=== PATIENT | female | born 1955 | race Caucasian/White ===

== ENCOUNTER → 2020-03-19 | Outpatient (CLI) | payer OTHER | LOC: RAD 17:30 | DX: M17.11 Unilateral primary osteoarthritis, right knee (principal); S49.92XA Unspecified injury of left shoulder and upper arm, initial encounter; M25.551 Pain in right hip; V87.7XXA Person injured in collision between other specified motor vehicles (traffic), initial encounter ==

== ENCOUNTER 2020-06-26 11:30 | Outpatient (RCR) | payer OTHER | END 2020-07-14 | disposition home or self-care (01) | LOC: PT | DX: M25.512 Pain in left shoulder (principal) ==

== ENCOUNTER 2020-07-16 10:57 | Outpatient (RCR) | payer OTHER, MEDICARE | END 2020-07-30 16:30 | disposition home or self-care (01) | LOC: PT 10:57 | DX: M25.512 Pain in left shoulder (principal) ==

== ENCOUNTER → 2020-08-29 | Outpatient (CLI) | payer MEDICARE, MEDICAID ==
[2020-08-29 12:16] LABS: EOS # 0.2 (0.04-0.40); EOS % 2.5 % (1.0-5.0); HEMATOCRIT 40.8 % (37.0-47.0); HEMOGLOBIN 13.6 g/dL (12.5-16.0); LYMPH# 2.3 (1.50-4.00); MEAN CELL VOLUME 90 fl (78-100); MEAN CORPUSCULAR HEMOGLOBIN 30 pg (27-31); MEAN CORPUSCULAR HGB CONC 33 g/dL (33-37); MEAN PLATELET VOLUME 10.7 fl (7.4-10.4); MONO # 0.4 (0.20-0.80); NEU # 3.4 (1.40-6.50); PLATELET COUNT 290 K/mm3 (130-400); RED BLOOD COUNT 4.56 M/mm3 (4.10-5.30); WHITE BLOOD COUNT 6.3 K/mm3 (4.8-10.8)
[2020-08-29 12:27] LABS: ALBUMIN 4.3 g/dL (3.4-4.8); POTASSIUM 3.9 mmol/L (3.5-5.1)
[2020-08-29 12:28] LABS: CALCIUM 9.1 mg/dL (8.3-10.5)
[2020-08-29 12:30] LABS: TOTAL PROTEIN 7.7 g/dL (6.2-8.1)
[2020-08-29 12:31] LABS: TOTAL BILIRUBIN 0.6 mg/dL (0.2-1.2)
== END ==
LOC: LAB 11:57
PROVIDERS: Physician Assistant
DX: Z00.00 Encounter for general adult medical examination without abnormal findings (principal); Z13.29 Encounter for screening for other suspected endocrine disorder; E78.5 Hyperlipidemia, unspecified; R73.9 Hyperglycemia, unspecified

== ENCOUNTER → 2020-09-02 | Outpatient (CLI) | payer MEDICARE, MEDICAID | LOC: MAMMO 13:45 | DX: Z12.31 Encounter for screening mammogram for malignant neoplasm of breast (principal); Z00.00 Encounter for general adult medical examination without abnormal findings ==

== ENCOUNTER → 2020-09-04 | Outpatient (CLI) | payer MEDICARE, MEDICAID | LOC: RAD 09:00 → MAMMO 09:15 | DX: Z78.0 Asymptomatic menopausal state (principal); Z13.820 Encounter for screening for osteoporosis; Z00.00 Encounter for general adult medical examination without abnormal findings ==

== ENCOUNTER → 2021-09-16 | Outpatient (CLI) | payer MEDICARE, MEDICAID | LOC: MAMMO 15:04 | DX: Z12.31 Encounter for screening mammogram for malignant neoplasm of breast (principal) ==

== ENCOUNTER → 2021-10-01 | Outpatient (CLI) | payer MEDICARE, MEDICAID | LOC: RAD 12:59 | DX: N60.02 Solitary cyst of left breast (principal) ==

== ENCOUNTER 2021-10-12 12:56 | Outpatient (RCR) | payer MEDICARE, MEDICAID | END 2021-11-07 | disposition still patient (30) | LOC: PT | DX: M75.122 Complete rotator cuff tear or rupture of left shoulder, not specified as traumatic (principal) ==

== ENCOUNTER → 2021-10-14 | Outpatient (CLI) | payer MEDICARE, MEDICAID ==
[2021-10-14 16:04] LABS: BASO # 0.04 K/mm3 (0.02-0.10); EOS # 0.21 K/mm3 (0.04-0.40); EOS % 2.3 % (1.0-5.0); HEMATOCRIT 40.2 % (37.0-47.0); HEMOGLOBIN 13.5 g/dL (12.5-16.0); LYMPH# 3.29 K/mm3 (1.50-4.00); MEAN CELL VOLUME 89 fl (78-100); MEAN CORPUSCULAR HEMOGLOBIN 30 pg (27-31); MEAN CORPUSCULAR HGB CONC 34 g/dL (33-37); MEAN PLATELET VOLUME 10.7 fl (7.4-10.4); NEU # 4.95 K/mm3 (1.40-6.50); PLATELET COUNT 295 K/mm3 (130-400); RED CELL DISTRIBUTION WIDTH 14.2 % (11.5-14.5); WHITE BLOOD COUNT 9.1 K/mm3 (4.8-10.8)
[2021-10-14 16:09] LABS: ALBUMIN 4.1 g/dL (3.4-4.8)
[2021-10-14 16:10] LABS: CALCIUM 9.4 mg/dL (8.3-10.5)
[2021-10-14 16:11] LABS: TOTAL PROTEIN 7.5 g/dL (6.2-8.1)
[2021-10-14 16:13] LABS: TOTAL BILIRUBIN 0.4 mg/dL (0.2-1.2)
== END ==
LOC: LAB 15:33
PROVIDERS: Physician Assistant
DX: Z13.29 Encounter for screening for other suspected endocrine disorder (principal); Z13.1 Encounter for screening for diabetes mellitus; E78.5 Hyperlipidemia, unspecified; K90.9 Intestinal malabsorption, unspecified; K21.9 Gastro-esophageal reflux disease without esophagitis; I10 Essential (primary) hypertension; R42 Dizziness and giddiness

== ENCOUNTER 2021-11-10 12:58 | Outpatient (RCR) | payer MEDICARE, MEDICAID | END 2021-12-08 | disposition home or self-care (01) | LOC: PT | DX: M75.122 Complete rotator cuff tear or rupture of left shoulder, not specified as traumatic (principal); Z98.890 Other specified postprocedural states ==

== ENCOUNTER 2021-12-11 13:30 | Outpatient (RCR) | payer MEDICARE, MEDICAID | END 2022-01-07 | disposition still patient (30) | LOC: PT | DX: M75.122 Complete rotator cuff tear or rupture of left shoulder, not specified as traumatic (principal); Z98.890 Other specified postprocedural states ==

== ENCOUNTER 2022-01-08 13:00 | Outpatient (RCR) | payer MEDICARE, MEDICAID | END 2022-02-07 | disposition home or self-care (01) | LOC: PT | DX: M75.122 Complete rotator cuff tear or rupture of left shoulder, not specified as traumatic (principal); Z98.890 Other specified postprocedural states ==

== ENCOUNTER 2022-02-09 07:48 | Outpatient (RCR) | payer MEDICARE, MEDICAID | END 2022-03-10 | disposition home or self-care (01) | LOC: PT | DX: M75.122 Complete rotator cuff tear or rupture of left shoulder, not specified as traumatic (principal) ==

== ENCOUNTER → 2022-08-24 | Outpatient (CLI) | payer MEDICARE, MEDICAID ==
[2022-08-24 10:48] LABS: BASO # 0.02 K/mm3 (0.02-0.10); EOS # 0.24 K/mm3 (0.04-0.40); EOS % 3.6 % (1.0-5.0); HEMATOCRIT 37.8 % (37.0-47.0); HEMOGLOBIN 12.5 g/dL (12.5-16.0); LYMPH# 2.89 K/mm3 (1.50-4.00); MEAN CELL VOLUME 91 fl (78-100); MEAN CORPUSCULAR HEMOGLOBIN 30 pg (27-31); MEAN CORPUSCULAR HGB CONC 33 g/dL (33-37); MEAN PLATELET VOLUME 10.6 fl (7.4-10.4); MONO # 0.42 K/mm3 (0.20-0.80); NEU # 3.18 K/mm3 (1.40-6.50); PLATELET COUNT 272 K/mm3 (130-400); RED BLOOD COUNT 4.16 M/mm3 (4.10-5.30); RED CELL DISTRIBUTION WIDTH 13.8 % (11.5-14.5); WHITE BLOOD COUNT 6.8 K/mm3 (4.8-10.8)
[2022-08-24 10:59] LABS: ALBUMIN 4.2 g/dL (3.4-4.8); POTASSIUM 3.8 mmol/L (3.5-5.1)
[2022-08-24 11:02] LABS: TOTAL PROTEIN 7.4 g/dL (6.2-8.1)
[2022-08-24 11:04] LABS: TOTAL BILIRUBIN 0.5 mg/dL (0.2-1.2)
== END ==
LOC: LAB 10:23
PROVIDERS: Physician Assistant
DX: Z00.00 Encounter for general adult medical examination without abnormal findings (principal); Z13.29 Encounter for screening for other suspected endocrine disorder; Z13.1 Encounter for screening for diabetes mellitus; M25.512 Pain in left shoulder; N95.0 Postmenopausal bleeding; M79.10 Myalgia, unspecified site; E78.5 Hyperlipidemia, unspecified; K21.9 Gastro-esophageal reflux disease without esophagitis; N81.10 Cystocele, unspecified; F32.9 Major depressive disorder, single episode, unspecified; L20.9 Atopic dermatitis, unspecified; F41.9 Anxiety disorder, unspecified; K90.9 Intestinal malabsorption, unspecified

== ENCOUNTER → 2022-09-22 | Outpatient (CLI) | payer MEDICARE, MEDICAID | LOC: MAMMO 10:00 | DX: Z12.31 Encounter for screening mammogram for malignant neoplasm of breast (principal) ==

== ENCOUNTER → 2023-09-02 | Outpatient (CLI) | payer MEDICARE, MEDICAID ==
[2023-09-02 09:25] LABS: BASO # 0.02 K/mm3 (0.02-0.10); EOS # 0.26 K/mm3 (0.04-0.40); EOS % 3.7 % (1.0-5.0); HEMATOCRIT 37.6 % (37.0-47.0); HEMOGLOBIN 12.3 g/dL (12.5-16.0); LYMPH# 2.77 K/mm3 (1.50-4.00); MEAN CELL VOLUME 91 fl (78-100); MEAN CORPUSCULAR HEMOGLOBIN 30 pg (27-31); MEAN CORPUSCULAR HGB CONC 33 g/dL (33-37); MEAN PLATELET VOLUME 10.9 fl (7.4-10.4); MONO # 0.42 K/mm3 (0.20-0.80); NEU # 3.48 K/mm3 (1.40-6.50); PLATELET COUNT 317 K/mm3 (130-400); RED BLOOD COUNT 4.15 M/mm3 (4.10-5.30); RED CELL DISTRIBUTION WIDTH 13.9 % (11.5-14.5)
[2023-09-02 10:56] LABS: ALBUMIN 4.1 g/dL (3.4-4.8)
[2023-09-02 10:57] LABS: CALCIUM 9.5 mg/dL (8.3-10.5)
[2023-09-02 10:59] LABS: TOTAL PROTEIN 7.4 g/dL (6.2-8.1)
[2023-09-02 11:00] LABS: TOTAL BILIRUBIN 0.4 mg/dL (0.2-1.2)
== END ==
LOC: LAB 08:52
PROVIDERS: Physician Assistant
DX: Z13.1 Encounter for screening for diabetes mellitus (principal); Z13.29 Encounter for screening for other suspected endocrine disorder; E78.5 Hyperlipidemia, unspecified; K90.9 Intestinal malabsorption, unspecified

== ENCOUNTER → 2023-09-28 | Outpatient (CLI) | payer MEDICARE, MEDICAID | LOC: MAMMO 10:18 | DX: Z12.31 Encounter for screening mammogram for malignant neoplasm of breast (principal) ==

== ENCOUNTER → 2023-09-28 | Outpatient (CLI) | payer MEDICARE, MEDICAID | LOC: RAD 10:23 → MAMMO 11:00 | DX: Z13.820 Encounter for screening for osteoporosis (principal) ==

== ENCOUNTER 2024-08-10 18:03 | Emergency (ER) | payer MEDICARE, MEDICAID ==
[~2024-08-10] VITALS: Ht 157.5 cm; Wt 93.5 kg
[2024-08-10] MEDS ORDERED: TRIAMT (18:18)
[2024-08-10] MEDS ORDERED: HCTZ (18:18)
[2024-08-10] MEDS ORDERED: FLUOXETINE HCL20 MG PO (18:18)
[2024-08-10] MEDS ORDERED: OMEPRAZOLE40 MG PO (18:18)
[2024-08-10 18:54] LABS: ALBUMIN 4.1 g/dL (3.4-4.8)
[2024-08-10 18:56] LABS: TOTAL PROTEIN 7.6 g/dL (6.2-8.1)
[2024-08-10 18:58] LABS: TOTAL BILIRUBIN 0.3 mg/dL (0.2-1.2)
[2024-08-10] MEDS ORDERED: BENZONATATE100 M2 PO (19:00)
[2024-08-10] MEDS ORDERED: FLUTICASONE P15.8 ML NS (19:11)
[2024-08-10] MEDS ORDERED: ZITHROMAX 250M250 MG PO (19:11)
[2024-08-10] MEDS ORDERED: ALLER-TEC10 MG PO (19:11)
[2024-08-10] MEDS ORDERED: Azithromycin 250 MG TAB PO ONE (19:15)
[2024-08-10 19:52] VITALS: BP 151/79
== END 2024-08-10 19:57 | disposition home or self-care (01) ==
LOC: ED 18:03
PROVIDERS: Family Medicine
DX: J18.9 Pneumonia, unspecified organism (principal); E86.0 Dehydration; Z88.0 Allergy status to penicillin
CPT/HCPCS: J7120

== ENCOUNTER → 2024-10-11 | Outpatient (CLI) | payer MEDICARE, MEDICAID ==
[~2024-10-11] MED LIST: ALLER-TEC10 MG PO; BENZONATATE100 M2 PO; FLUOXETINE HCL20 MG PO; FLUTICASONE P15.8 ML NS; HCTZ; OMEPRAZOLE40 MG PO; TRIAMT; ZITHROMAX 250M250 MG PO
[2024-10-11 11:21] LABS: ALBUMIN 4.4 g/dL (3.4-4.8)
[2024-10-11 11:23] LABS: TOTAL PROTEIN 7.7 g/dL (6.2-8.1)
[2024-10-11 11:25] LABS: TOTAL BILIRUBIN 0.5 mg/dL (0.2-1.2)
[2024-10-11 11:52] LABS: BASO # 0.02 K/mm3 (0.02-0.10); EOS % 1.6 % (1.0-5.0); HEMATOCRIT 39.6 % (37.0-47.0); HEMOGLOBIN 13.1 g/dL (12.5-16.0); LYMPH# 2.03 K/mm3 (1.50-4.00); MEAN CELL VOLUME 89 fl (78-100); MEAN CORPUSCULAR HEMOGLOBIN 30 pg (27-31); MEAN CORPUSCULAR HGB CONC 33 g/dL (33-37); MEAN PLATELET VOLUME 11.3 fl (7.4-10.4); MONO # 0.38 K/mm3 (0.20-0.80); NEU # 3.78 K/mm3 (1.40-6.50); PLATELET COUNT 330 K/mm3 (130-400); RED BLOOD COUNT 4.43 M/mm3 (4.10-5.30); RED CELL DISTRIBUTION WIDTH 13.5 % (11.5-14.5); WHITE BLOOD COUNT 6.3 K/mm3 (4.8-10.8)
== END ==
LOC: LAB 10:46
PROVIDERS: Physician Assistant
DX: Z00.00 Encounter for general adult medical examination without abnormal findings (principal); Z13.29 Encounter for screening for other suspected endocrine disorder; Z13.1 Encounter for screening for diabetes mellitus; Z11.59 Encounter for screening for other viral diseases; E78.5 Hyperlipidemia, unspecified; I10 Essential (primary) hypertension

== ENCOUNTER → 2024-10-18 | Outpatient (CLI) | payer MEDICARE, MEDICAID | LOC: MAMMO 15:00 | DX: Z12.31 Encounter for screening mammogram for malignant neoplasm of breast (principal); N64.89 Other specified disorders of breast ==